=== PATIENT | male | born 1950 | race Caucasian/White ===

== ENCOUNTER 2019-03-02 09:55 | Day surgery (SDC) | payer MEDICARE, BC ==
[~2019-03-02 09:55] MED LIST: Midazolam 1 MG/ML 2 ML SDV ONE; Propofol 200 MG/20 ML SDV ONE
[2019-03-02] MEDS ORDERED: Sodium Chloride 0.9% 10 ML Syringe FLUSH PRN (10:00)
[2019-03-02] MEDS: Lactated Ringers 1,000 ML IV SCH (10:13)
[2019-03-02] MEDS ORDERED: Midazolam 1 MG/ML 2 ML SDV ONE (11:17)
[2019-03-02] MEDS ORDERED: Lidocaine 2% 5 ML SDV ONE (11:17)
[2019-03-02] MEDS ORDERED: Propofol 200 MG/20 ML SDV ONE (11:17)
--- NOTE | 2019-03-02 11:25 | PCM.OPNOTE ---
- General Post-Op/Procedure Note Date of Surgery/Procedure: 03/02/19 Operative Procedure(s): EGD with Bx. Colonoscopy with polypectomy Findings: Distal Esophagitis, Small HH, Duodenitis Sig Colon Polyp Pre Op Diagnosis: Dysphasia, Colon Screening Post-Op Diagnosis: Same Anesthesia Technique: ESTHER Primary Surgeon: Ian Martinez Anesthesia Provider: Jennifer Morse Complications: None Condition: Good
--- NOTE | 2019-03-02 15:03 | OR ---
Date of Procedure: 03/02/2019 PREOPERATIVE DIAGNOSES: 1. Dysphagia. 2. Colon screening. POSTOPERATIVE DIAGNOSES: 1. Distal esophagitis with small hiatal hernia. 2. Duodenitis. 3. Sigmoid colon polyp. PROCEDURES: 1. Esophagogastroduodenoscopy with biopsy. 2. Colonoscopy with polypectomy. ANESTHESIA: IV sedation. DESCRIPTION OF PROCEDURE: The patient was brought to procedure room where he was placed on his left side and IV sedation administered. Oral bite block was placed and the upper endoscope advanced into the esophagus under direct vision without difficulty. Vocal cords were viewed and were normal. The scope was advanced to the third portion of the duodenum. Duodenum and pylorus were normal. Antrum has some evidence of inflammation with a superficial erosion. I did take 2 biopsies from the antrum. The body and fundus were normal. Retroflexion revealed a small regular hiatal hernia approximately 2 cm in length. The distal esophagus does show inflammation and the squamocolumnar junction was irregular. I did take 3 random biopsies from the distal esophagus. There appeared to be possible slight stricture, but the scope easily passed through and this should not be causing dysphagia. Air was removed from the stomach and the scope withdrawn through the remaining esophagus, which was normal. Next, colonoscopy was performed. Digital rectal exam was performed which was normal. Colonoscope was inserted and advanced to the level of the cecum without difficulty. Cecal position was confirmed by identifying the ileocecal valve. I could not see the appendiceal lumen over the fold, but most of the cecal surfaces were visualized. The prep was good and surfaces were well visualized. Upon withdrawing the scope, the ascending, transverse, and descending colon were normal in appearance. Sigmoid colon has an 8 mm pedunculated polyp located at 30 cm from the anal verge, which was removed with a cautery snare and retrieved in the polyp trap. Polyp was completely resected. The remaining sigmoid colon and rectum were normal. Retroflexion was normal. Air was removed and the scope withdrawn. The patient tolerated the procedure well and returned to Recovery in stable condition. The patient to follow up with Mariano Palomo next week for review of pathology report. I feel he should be started on omeprazole for at least 4 to 6 weeks because of this findings. If H. pylori is present, this should be treated. If the polyp is adenomatous, he should undergo a repeat colonoscopy again in 3 years. WHIT VIRAMONTES MD /[id number]
== END 2019-03-02 12:25 | disposition home or self-care (01) ==
LOC: LL.SDS 09:55
PROVIDERS: ATTEND Surgery
DX: Z12.11 Encounter for screening for malignant neoplasm of colon (principal); D12.5 Benign neoplasm of sigmoid colon; K44.9 Diaphragmatic hernia without obstruction or gangrene; K29.80 Duodenitis without bleeding; K21.0 Gastro-esophageal reflux disease with esophagitis; K29.50 Unspecified chronic gastritis without bleeding; K31.89 Other diseases of stomach and duodenum; K22.10 Ulcer of esophagus without bleeding; E78.00 Pure hypercholesterolemia, unspecified; I10 Essential (primary) hypertension; J30.1 Allergic rhinitis due to pollen; Z79.899 Other long term (current) drug therapy; Z79.51 Long term (current) use of inhaled steroids
CPT/HCPCS: 00813; 43239; 45385; J2001; J2250; J2704; J7120; 88305

== ENCOUNTER 2023-10-28 08:14 | Day surgery (SDC) | payer BC, MEDICARE, OTHER ==
[~2023-10-28 08:14] MED LIST changes: +Sodium Chloride 0.9% 10 ML Syringe FLUSH PRN
[2023-10-28] MEDS ORDERED: Sodium Chloride 0.9% 10 ML Syringe FLUSH PRN (08:15)
[2023-10-28] MEDS: Lactated Ringers 1,000 ML IV SCH (09:04)
[2023-10-28] MEDS ORDERED: Propofol 200 MG/20 ML SDV IV ONE (09:25)
[2023-10-28] MEDS ORDERED: Glycopyrrolate 0.2 MG/ML SDV IVPUSH ONE (09:25)
== END 2023-10-28 11:30 | disposition home or self-care (01) ==
LOC: LL.SDS 08:14
PROVIDERS: ATTEND Surgery
DX: Z12.11 Encounter for screening for malignant neoplasm of colon (principal); K22.2 Esophageal obstruction; K29.50 Unspecified chronic gastritis without bleeding; K21.00 Gastro-esophageal reflux disease with esophagitis, without bleeding; K44.9 Diaphragmatic hernia without obstruction or gangrene; K57.30 Diverticulosis of large intestine without perforation or abscess without bleeding; R23.4 Changes in skin texture; E78.5 Hyperlipidemia, unspecified; Z79.899 Other long term (current) drug therapy; Z86.010 Personal history of colon polyps
CPT/HCPCS: 00813; 99100; C1726; J2250; J2704; J3490; J7120